=== PATIENT | female | born 1985 | race Two or more races ===

== ENCOUNTER 2018-10-20 14:40 | Inpatient (IN) | payer MEDICAID ==
[2018-10-20] MEDS ORDERED: NACL 0.9% 3 ML SYG IV (15:30)
[2018-10-20 17:04] LABS: ADD MAN DIFF? NO
[2018-10-20 17:05] LABS: BASOPHIL # 0.1 10^3/ul (0.0-0.1); BASOPHILS % 0.5 % (0.0-2.0); EOSINOPHILS # 0.3 10^3/ul (0.0-0.5); EOSINOPHILS % 1.8 % (0.0-7.0); HEMATOCRIT 36.8 % (37.0-47.0); LYMPHOCYTES # 2.9 10^3/ul (0.8-2.9); LYMPHOCYTES % 18.8 % (15.0-51.0); MEAN CORPUSCULAR HEMOGLOBIN 29.3 pg (29.0-33.0); MEAN CORPUSCULAR HGB CONC 35.3 g/dl (32.0-37.0); MEAN CORPUSCULAR VOLUME 83.1 fl (82.0-101.0); MEAN PLATELET VOLUME 10.5 fl (7.4-10.4); MONOCYTES % 6.2 % (0.0-11.0); NEUTROPHIL # 10.8 10^3/ul (1.6-7.5); NEUTROPHILS % 70.5 % (39.0-77.0); PLATELET COUNT 311 10^3/UL (140-415); RED BLOOD COUNT 4.43 10^6/ul (4.20-5.40); RED CELL DISTRIBUTION WIDTH 13.6 % (11.5-14.5)
[2018-10-20 17:05] LABS: WHITE BLOOD COUNT 15.3 10^3/ul (4.8-10.8)
[2018-10-20 17:24] LABS: HEMOGLOBIN A1C 7.9 % (0-5.9)
[2018-10-20 17:38] LABS: ADD UMIC NO; UR ASCORBIC ACID 40 mg/dL (NEGATIVE); UR BILIRUBIN (Dip) NEGATIVE (NEGATIVE); UR BLOOD (Dip) NEGATIVE (NEGATIVE); UR CLARITY SLIGHTLY CLOUDY (CLEAR); UR COLOR YELLOW (YELLOW); UR GLUCOSE (Dip) 3+ mg/dL (NEGATIVE); UR KETONES (Dip) 2+ mg/dL (NEGATIVE); UR LEUKOCYTE ESTERASE (Dip) NEGATIVE Leu/ul (NEGATIVE); UR MUCUS FEW /HPF (NONE SEEN); UR NITRITE (Dip) NEGATIVE (NEGATIVE); UR RBC 2 /HPF (0-5); UR SPECIFIC GRAVITY (Dip) 1.039 (1.003-1.030); UR SQUAMOUS EPITHELIAL CELL FEW /HPF (FEW); UR TOTAL PROTEIN (Dip) NEGATIVE (NEGATIVE); UR UROBILINOGEN (Dip) NEGATIVE (NEGATIVE); UR WBC 2 /HPF (0-5)
[2018-10-20 17:44] LABS: ALANINE AMINOTRANSFERASE 21 IU/L (13-69); ALBUMIN 4.2 g/dl (3.3-4.9); ALBUMIN/GLOBULIN RATIO 1.16; ALKALINE PHOSPHATASE 60 IU/L (42-121); ANION GAP 11 (5-13); ASPARTATE AMINO TRANSFERASE 16 IU/L (15-46); BILIRUBIN,INDIRECT 0.2 mg/dl (0-1.1); BILIRUBIN,TOTAL 0.2 mg/dl (0.2-1.3); BLOOD UREA NITROGEN 11 mg/dl (7-20); CALCIUM 10.8 mg/dl (8.4-10.2); CARBON DIOXIDE 21 mmol/L (21-31); CHLORIDE 104 mmol/L (97-110); CREATININE 0.54 mg/dl (0.44-1.00); Estimated GFR > 60 mL/min (>60); GLUCOSE 244 mg/dl (70-220); POTASSIUM 4.7 mmol/L (3.5-5.1); SODIUM 136 mmol/L (135-144); TOTAL PROTEIN 7.8 g/dl (6.1-8.1)
[2018-10-20] MEDS ORDERED: GLUCOSE GEL 15 GRAM TUBE PO ×2 (18:00)
[2018-10-20] MEDS ORDERED: GLUCOSE GEL 15 GRAM TUBE BUCCAL (18:00)
[2018-10-20] MEDS ORDERED: GLUCAGON 1 MG INJ IM (18:00)
[2018-10-20] MEDS ORDERED: DEXTROSE 50% 50 ML SYRINGE IV ×2 (18:00)
[2018-10-20] MEDS ORDERED: ACCU-CHEK XX ×2 (20:05)
[2018-10-20] MEDS: FLUCONAZOLE 150 MG TAB GTB (20:21)
[2018-10-20] MEDS: ACCU-CHEK XX (20:28)
[2018-10-20] MEDS: INSULIN ASPART [NOVOLOG] 3 ML PEN SC (20:39)
[2018-10-20] MEDS: LABETALOL 200 MG TAB PO (20:51)
[2018-10-20] MEDS ORDERED: CLOTRIMAZOLE 1% 45 GM VAG CR VAG (21:00)
[2018-10-20] MEDS: CLOTRIMAZOLE 1% 45 GM VAG CR VAG (21:00)
[2018-10-21] MEDS: ACCU-CHEK XX ×6 (08:15→16:55)
[2018-10-21] MEDS: ASPIRIN (EC) 81 MG TAB PO (09:58)
[2018-10-21] MEDS: LABETALOL 200 MG TAB PO ×2 (09:59→21:20)
[2018-10-21] MEDS: PRENATAL VITAMIN PO (10:00)
[2018-10-21] MEDS: FERROUS SULFATE (EC) 325 MG TAB PO (10:00)
[2018-10-21] MEDS: INSULIN ASPART [NOVOLOG] 3 ML PEN SC ×5 (10:09→20:34)
[2018-10-21] MEDS: NPH, HUMAN INSULIN ISOPHANE 3ML VIAL SC ×2 (10:33→21:30)
[2018-10-21 16:52] LABS: COLLECTION PERIOD 24 hrs
[2018-10-21 17:11] LABS: COLLECTION PERIOD 24 hrs; SCRET 0.54 mg/dl (0.44-1.00); VOLUME 2750 ml/24hrs
[2018-10-21 17:12] LABS: VOLUME 2750 mls
[2018-10-21 18:06] LABS: 24HR URINE TOTAL PROTEIN 302.5 mg/24hrs (42.0-225.0); CREATININE CLEARANCE 190.4 mls/min (84.0-162.0); CREATININE,URINE RANDOM 53.84 mg/dl (20-320)
[2018-10-21] MEDS: CLOTRIMAZOLE 1% 45 GM VAG CR VAG (21:21)
[2018-10-22] MEDS: ACCU-CHEK XX ×3 (08:24→14:49)
[2018-10-22] MEDS: FLUCONAZOLE 150 MG TAB GTB (08:36)
[2018-10-22] MEDS: PRENATAL VITAMIN PO (08:36)
[2018-10-22] MEDS: ASPIRIN (EC) 81 MG TAB PO (08:36)
[2018-10-22] MEDS: LABETALOL 200 MG TAB PO ×2 (08:37→21:46)
[2018-10-22] MEDS: FERROUS SULFATE (EC) 325 MG TAB PO (08:37)
[2018-10-22] MEDS: INSULIN ASPART [NOVOLOG] 3 ML PEN SC ×5 (08:43→21:01)
[2018-10-22] MEDS: NPH, HUMAN INSULIN ISOPHANE 3ML VIAL SC ×2 (08:43→21:50)
[2018-10-22] MEDS: DOCUSATE SODIUM 100 MG CAP PO (08:47)
[2018-10-22] MEDS: CLOTRIMAZOLE 1% 45 GM VAG CR VAG (21:46)
[2018-10-23] MEDS: ACCU-CHEK XX ×4 (07:30→14:44)
[2018-10-23] MEDS: NPH, HUMAN INSULIN ISOPHANE 3ML VIAL SC ×2 (08:29→21:22)
[2018-10-23] MEDS: ASPIRIN (EC) 81 MG TAB PO (08:30)
[2018-10-23] MEDS: FERROUS SULFATE (EC) 325 MG TAB PO (08:30)
[2018-10-23] MEDS: PRENATAL VITAMIN PO (08:30)
[2018-10-23] MEDS: INSULIN ASPART [NOVOLOG] 3 ML PEN SC ×4 (08:30→18:02)
[2018-10-23] MEDS: LABETALOL 200 MG TAB PO ×2 (08:32→21:16)
[2018-10-23] MEDS: CLOTRIMAZOLE 1% 45 GM VAG CR VAG (21:17)
[2018-10-24] MEDS: INSULIN ASPART [NOVOLOG] 3 ML PEN SC ×6 (07:30→20:39)
[2018-10-24] MEDS: ACCU-CHEK XX ×4 (07:47→20:32)
[2018-10-24] MEDS: PRENATAL VITAMIN PO (08:17)
[2018-10-24] MEDS: LABETALOL 200 MG TAB PO ×2 (08:18→20:56)
[2018-10-24] MEDS: ASPIRIN (EC) 81 MG TAB PO (08:18)
[2018-10-24] MEDS: FERROUS SULFATE (EC) 325 MG TAB PO (08:18)
[2018-10-24] MEDS: NPH, HUMAN INSULIN ISOPHANE 3ML VIAL SC ×2 (08:21→21:01)
[2018-10-24] MEDS: CLOTRIMAZOLE 1% 45 GM VAG CR VAG (20:56)
[2018-10-25] MEDS: ACCU-CHEK XX ×4 (07:30→20:44)
[2018-10-25] MEDS: NPH, HUMAN INSULIN ISOPHANE 3ML VIAL SC ×2 (07:35→21:10)
[2018-10-25] MEDS: INSULIN ASPART [NOVOLOG] 3 ML PEN SC ×5 (08:42→20:44)
[2018-10-25] MEDS: ASPIRIN (EC) 81 MG TAB PO (09:03)
[2018-10-25] MEDS: LABETALOL 200 MG TAB PO ×2 (09:03→21:07)
[2018-10-25] MEDS: FERROUS SULFATE (EC) 325 MG TAB PO (09:03)
[2018-10-25] MEDS: PRENATAL VITAMIN PO (09:04)
[2018-10-25] MEDS: CLOTRIMAZOLE 1% 45 GM VAG CR VAG (21:07)
[2018-10-26] MEDS: ACCU-CHEK XX ×2 (08:05→11:30)
[2018-10-26] MEDS: ASPIRIN (EC) 81 MG TAB PO (09:05)
[2018-10-26] MEDS: FERROUS SULFATE (EC) 325 MG TAB PO (09:05)
[2018-10-26] MEDS: LABETALOL 200 MG TAB PO (09:06)
[2018-10-26] MEDS: PRENATAL VITAMIN PO (09:06)
[2018-10-26] MEDS: NPH, HUMAN INSULIN ISOPHANE 3ML VIAL SC (09:11)
[2018-10-26] MEDS: INSULIN ASPART [NOVOLOG] 3 ML PEN SC ×2 (09:12→11:40)
== END 2018-10-26 14:31 | disposition home or self-care (01) | DRG 832 ==
LOC: PP1 14:40
PROVIDERS: Obstetrics & Gynecology
DX: O24.112 Pre-existing type 2 diabetes mellitus, in pregnancy, second trimester (principal); O10.912 Unspecified pre-existing hypertension complicating pregnancy, second trimester; E11.9 Type 2 diabetes mellitus without complications; Z3A.18 18 weeks gestation of pregnancy
CPT/HCPCS: 76805; 80053; 81001; 81003; 82575; 82962; 83036; 84156; 85025; 87086

== ENCOUNTER 2019-01-03 14:05 | Outpatient (CLI) | payer MEDICAID | END 2019-01-03 15:40 | disposition home or self-care (01) | LOC: OBT 14:05 → L-D 14:05 → OBT 15:40 | DX: O36.8130 Decreased fetal movements, third trimester, not applicable or unspecified (principal); O24.414 Gestational diabetes mellitus in pregnancy, insulin controlled; O16.3 Unspecified maternal hypertension, third trimester; O09.513 Supervision of elderly primigravida, third trimester; Z3A.29 29 weeks gestation of pregnancy | CPT/HCPCS: 76817; 76818 ==

== ENCOUNTER 2019-02-08 15:22 | Outpatient (CLI) | payer OTHER, MEDICAID ==
[2019-02-08] MEDS: TERBUTALINE 1 MG/ML INJ SC (17:04)
[2019-02-08] MEDS: LACTATED RINGER'S 1,000 ML IV (17:04)
== END 2019-02-08 18:30 | disposition home or self-care (01) ==
LOC: OBT 15:22 → L-D 15:23 → OBT 18:30
DX: O36.8330 Maternal care for abnormalities of the fetal heart rate or rhythm, third trimester, not applicable or unspecified (principal); Z3A.34 34 weeks gestation of pregnancy
CPT/HCPCS: 36415; 96360; 96372

== ENCOUNTER 2019-02-21 16:58 | Outpatient (CLI) | payer OTHER | END 2019-02-21 20:30 | disposition home or self-care (01) | LOC: OBT 16:58 → L-D 16:59 → OBT 20:30 | DX: O24.414 Gestational diabetes mellitus in pregnancy, insulin controlled (principal); O16.3 Unspecified maternal hypertension, third trimester; O09.513 Supervision of elderly primigravida, third trimester; Z3A.36 36 weeks gestation of pregnancy | CPT/HCPCS: Z7500 ==

== ENCOUNTER 2019-02-23 16:23 | Outpatient (CLI) | payer OTHER | END 2019-02-23 21:15 | disposition home or self-care (01) | LOC: OBT 16:23 → L-D 16:24 → OBT 21:15 | DX: O36.8130 Decreased fetal movements, third trimester, not applicable or unspecified (principal); Z3A.36 36 weeks gestation of pregnancy | CPT/HCPCS: 76818 ==

== ENCOUNTER 2019-02-25 08:09 | Observation (INO) | payer OTHER ==
[2019-02-25] MEDS ORDERED: LACTATED RINGER'S 1,000 ML IV (08:36)
[2019-02-25] MEDS ORDERED: AMPICILLIN 2 GM/NS (PMX) 100 ML IV (09:00)
[2019-02-25] MEDS ORDERED: OXYTOCIN 30 UNITS/LR 500 ML IV ×3 (09:00)
[2019-02-25] MEDS ORDERED: IBUPROFEN 600 MG TAB PO (09:00)
[2019-02-25] MEDS ORDERED: LIDOCAINE 1% (MPF) 30 ML INJ INJ (09:00)
[2019-02-25] MEDS ORDERED: CARBOPROST 250 MCG INJ IM (09:00)
[2019-02-25] MEDS ORDERED: METHYLERGONOVINE 0.2 MG INJ IM (09:00)
[2019-02-25] MEDS ORDERED: BUTORPHANOL 2 MG INJ IV ×2 (09:00)
[2019-02-25] MEDS ORDERED: MISOPROSTOL 200 MCG TAB PR (09:00)
[2019-02-25] MEDS: LACTATED RINGER'S 1,000 ML IV (09:41)
[2019-02-25 10:10] LABS: ADD MAN DIFF? NO
[2019-02-25 10:15] LABS: BASOPHIL # 0.1 10^3/ul (0.0-0.1); BASOPHILS % 0.4 % (0.0-2.0); EOSINOPHILS # 0.3 10^3/ul (0.0-0.5); EOSINOPHILS % 1.9 % (0.0-7.0); HEMATOCRIT 34.7 % (37.0-47.0); HEMOGLOBIN 11.5 g/dl (12.0-16.0); LYMPHOCYTES # 2.3 10^3/ul (0.8-2.9); LYMPHOCYTES % 17.4 % (15.0-51.0); MEAN CORPUSCULAR HEMOGLOBIN 27.8 pg (29.0-33.0); MEAN CORPUSCULAR HGB CONC 33.1 g/dl (32.0-37.0); MEAN PLATELET VOLUME 10.6 fl (7.4-10.4); MONOCYTES % 7.7 % (0.0-11.0); NEUTROPHIL # 9.6 10^3/ul (1.6-7.5); NEUTROPHILS % 71.2 % (39.0-77.0); PLATELET COUNT 342 10^3/UL (140-415); RED BLOOD COUNT 4.13 10^6/ul (4.20-5.40); RED CELL DISTRIBUTION WIDTH 13.7 % (11.5-14.5)
[2019-02-25 10:15] LABS: WHITE BLOOD COUNT 13.4 10^3/ul (4.8-10.8)
[2019-02-25 10:46] LABS: INR 0.99; PROTIME 13.2 Sec (11.9-14.9)
[2019-02-25 10:55] LABS: ALANINE AMINOTRANSFERASE 13 IU/L (13-69); ALBUMIN 3.7 g/dl (3.3-4.9); ALBUMIN/GLOBULIN RATIO 1.08; ALKALINE PHOSPHATASE 94 IU/L (42-121); ANION GAP 8 (5-13); ASPARTATE AMINO TRANSFERASE 20 IU/L (15-46); BILIRUBIN,INDIRECT 0.2 mg/dl (0-1.1); BILIRUBIN,TOTAL 0.2 mg/dl (0.2-1.3); BLOOD UREA NITROGEN 10 mg/dl (7-20); CALCIUM 9.9 mg/dl (8.4-10.2); CARBON DIOXIDE 21 mmol/L (21-31); CHLORIDE 105 mmol/L (97-110); CREATININE 0.53 mg/dl (0.44-1.00); Estimated GFR > 60 mL/min (>60); GLUCOSE 118 mg/dl (70-220); SODIUM 134 mmol/L (135-144); TOTAL PROTEIN 7.1 g/dl (6.1-8.1); URIC ACID 5.5 mg/dl (3.1-7.9)
[2019-02-25 12:20] LABS: HEPATITIS B SURFACE ANTIGEN NEGATIVE (NEGATIVE)
[2019-02-25] MEDS ORDERED: AMPICILLIN 1 GM/NS (PMX) 50 ML IV (13:00)
[2019-02-25 16:49] LABS: RAPID PLASMA REAGIN NONREACTIVE (NR)
== END 2019-02-25 12:55 | disposition home or self-care (01) ==
LOC: L-D 08:09
DX: O13.3 Gestational [pregnancy-induced] hypertension without significant proteinuria, third trimester (principal); O24.414 Gestational diabetes mellitus in pregnancy, insulin controlled; Z3A.36 36 weeks gestation of pregnancy
CPT/HCPCS: 76815; 76818; 80053; 84560; 85025; 85384; 85610; 85730; 86592; 86850; 86900; 86901; 87340; 99217

== ENCOUNTER 2019-02-28 07:50 | Inpatient (IN) | payer OTHER ==
[2019-02-28] MEDS ORDERED: CARBOPROST 250 MCG INJ IM (08:30)
[2019-02-28] MEDS ORDERED: MISOPROSTOL 200 MCG TAB PR (08:30)
[2019-02-28] MEDS ORDERED: OXYTOCIN 30 UNITS/LR 500 ML IV ×2 (08:30)
[2019-02-28] MEDS ORDERED: METHYLERGONOVINE 0.2 MG INJ IM (08:30)
[2019-02-28] MEDS ORDERED: LIDOCAINE 1% (MPF) 30 ML INJ INJ (08:30)
[2019-02-28] MEDS ORDERED: BUTORPHANOL 2 MG INJ IV (08:30)
[2019-02-28] MEDS ORDERED: OXYCODONE/ASPIRIN (4.88/325) TAB PO (08:30)
[2019-02-28] MEDS ORDERED: IBUPROFEN 600 MG TAB PO (08:30)
[2019-02-28] MEDS: LACTATED RINGER'S 1,000 ML IV ×2 (09:02→18:07)
[2019-02-28] MEDS: MISOPROSTOL 50 MCG CAPSULE PO ×3 (09:42→17:59)
[2019-02-28] MEDS: AMPICILLIN 2 GM/NS (PMX) 100 ML IV (09:42)
[2019-02-28] MEDS ORDERED: LABETALOL 200 MG TAB PO (10:00)
[2019-02-28 10:15] LABS: ADD MAN DIFF? NO
[2019-02-28 10:21] LABS: BASOPHIL # 0.1 10^3/ul (0.0-0.1); BASOPHILS % 0.5 % (0.0-2.0); EOSINOPHILS # 0.3 10^3/ul (0.0-0.5); EOSINOPHILS % 1.8 % (0.0-7.0); HEMATOCRIT 35.7 % (37.0-47.0); HEMOGLOBIN 11.8 g/dl (12.0-16.0); LYMPHOCYTES # 2.2 10^3/ul (0.8-2.9); LYMPHOCYTES % 15.6 % (15.0-51.0); MEAN CORPUSCULAR HGB CONC 33.1 g/dl (32.0-37.0); MEAN CORPUSCULAR VOLUME 84.6 fl (82.0-101.0); MEAN PLATELET VOLUME 10.8 fl (7.4-10.4); MONOCYTE # 0.8 10^3/ul (0.3-0.9); MONOCYTES % 5.8 % (0.0-11.0); NEUTROPHIL # 10.7 10^3/ul (1.6-7.5); NEUTROPHILS % 74.8 % (39.0-77.0); PLATELET COUNT 331 10^3/UL (140-415); RED BLOOD COUNT 4.22 10^6/ul (4.20-5.40); RED CELL DISTRIBUTION WIDTH 13.6 % (11.5-14.5)
[2019-02-28 10:21] LABS: WHITE BLOOD COUNT 14.3 10^3/ul (4.8-10.8)
[2019-02-28 10:42] LABS: GLUCOSE 146 mg/dl (70-220)
[2019-02-28 10:56] LABS: ALANINE AMINOTRANSFERASE 16 IU/L (13-69); ALBUMIN 3.5 g/dl (3.3-4.9); ALKALINE PHOSPHATASE 93 IU/L (42-121); ANION GAP 9 (5-13); ASPARTATE AMINO TRANSFERASE 17 IU/L (15-46); BILIRUBIN,INDIRECT 0.2 mg/dl (0-1.1); BILIRUBIN,TOTAL 0.2 mg/dl (0.2-1.3); BLOOD UREA NITROGEN 10 mg/dl (7-20); CALCIUM 9.8 mg/dl (8.4-10.2); CARBON DIOXIDE 21 mmol/L (21-31); CHLORIDE 105 mmol/L (97-110); CREATININE 0.49 mg/dl (0.44-1.00); Estimated GFR > 60 mL/min (>60); GLUCOSE 141 mg/dl (70-220); POTASSIUM 4.2 mmol/L (3.5-5.1); SODIUM 135 mmol/L (135-144); TOTAL PROTEIN 6.4 g/dl (6.1-8.1); URIC ACID 5.3 mg/dl (3.1-7.9)
[2019-02-28 11:31] LABS: INR 0.95; PROTIME 12.8 Sec (11.9-14.9)
[2019-02-28] MEDS: AMPICILLIN 1 GM/NS (PMX) 50 ML IV ×3 (13:57→21:53)
[2019-02-28] MEDS ORDERED: GLUCOSE GEL 15 GRAM TUBE PO ×2 (14:00)
[2019-02-28] MEDS ORDERED: GLUCOSE GEL 15 GRAM TUBE BUCCAL (14:00)
[2019-02-28] MEDS ORDERED: GLUCAGON 1 MG INJ IM (14:00)
[2019-02-28] MEDS ORDERED: DEXTROSE 50% 50 ML SYRINGE IV ×2 (14:00)
[2019-02-28] MEDS: INSULIN LISPRO 100 UNIT/ML VIAL SC (17:21)
[2019-02-28] MEDS: LABETALOL 200 MG TAB PO (17:59)
[2019-02-28] MEDS: NPH, HUMAN INSULIN ISOPHANE 3ML VIAL SC (21:55)
[2019-03-01] MEDS: AMPICILLIN 1 GM/NS (PMX) 50 ML IV ×6 (01:54→22:14)
[2019-03-01] MEDS: LACTATED RINGER'S 1,000 ML IV ×3 (01:55→22:52)
[2019-03-01] MEDS: LABETALOL 200 MG TAB PO ×2 (06:02→18:06)
[2019-03-01] MEDS: MISOPROSTOL 50 MCG CAPSULE PO ×3 (08:02→16:01)
[2019-03-01] MEDS: INSULIN LISPRO 100 UNIT/ML VIAL SC ×2 (08:23→18:25)
[2019-03-01] MEDS: NPH, HUMAN INSULIN ISOPHANE 3ML VIAL SC ×2 (08:29→21:10)
[2019-03-01] MEDS: OXYTOCIN 30 UNITS/LR 500 ML IV (21:16)
[2019-03-01] MEDS ORDERED: FENTAnyl 2MCG/ML-ROPIV 0.2% 100 ML (23:29)
[2019-03-01] MEDS ORDERED: ONDANSETRON 4 MG INJ IV (23:30)
[2019-03-01] MEDS ORDERED: DIPHENHYDRAMINE 50 MG INJ IV (23:30)
[2019-03-01] MEDS ORDERED: NALOXONE (0.4 MG/ML) INJ IV (23:30)
[2019-03-02] MEDS: AMPICILLIN 1 GM/NS (PMX) 50 ML IV ×6 (02:10→21:59)
[2019-03-02] MEDS: LACTATED RINGER'S 1,000 ML IV ×2 (06:07→15:42)
[2019-03-02] MEDS: LABETALOL 200 MG TAB PO ×2 (06:08→18:03)
[2019-03-02] MEDS: FENTAnyl 2MCG/ML-ROPIV 0.2% 100 ML BAG EPI ×3 (06:50→21:23)
[2019-03-02] MEDS ORDERED: INSULIN LISPRO 100 UNIT/ML VIAL SC (07:05)
[2019-03-02] MEDS ORDERED: NPH, HUMAN INSULIN ISOPHANE 3ML VIAL SC (07:05)
[2019-03-03] MEDS ORDERED: CARBOPROST 250 MCG INJ IM ×2 (01:00→07:00)
[2019-03-03] MEDS ORDERED: OXYTOCIN 30 UNITS/LR 500 ML IV (01:00)
[2019-03-03] MEDS ORDERED: MISOPROSTOL 200 MCG TAB PR ×2 (01:00→07:00)
[2019-03-03] MEDS ORDERED: METHYLERGONOVINE 0.2 MG INJ IM ×2 (01:00→07:00)
[2019-03-03] MEDS: CEFAZOLIN 3 GM in DEXTROSE 5% 100 ML IV (01:00)
[2019-03-03] MEDS: AZITHROMYCIN 500MG/NS (PMX) 250 ML IVPB (01:00)
[2019-03-03] MEDS ORDERED: CHLOROPROCAINE 3% (MPF) 20 ML INJ (02:03)
[2019-03-03] MEDS ORDERED: OXYTOCIN 30 UNITS/LR 500 ML BAG IV (02:03)
[2019-03-03] MEDS ORDERED: PHENYLephrine (100 MCG/ML) 5ML SYG (02:03)
[2019-03-03] MEDS ORDERED: ONDANSETRON 4 MG INJ (02:03)
[2019-03-03] MEDS ORDERED: METOCLOPRAMIDE 10 MG INJ (02:04)
[2019-03-03] MEDS ORDERED: ALBUTEROL 0.083% (NEB) 2.5 MG/3 ML AMP HHN (02:30)
[2019-03-03] MEDS ORDERED: FENTAnyl 50 MCG/ML VIAL IV ×3 (02:30)
[2019-03-03] MEDS ORDERED: HYDROmorphONE 1 MG/5 ML IV SYRINGE IV (02:30)
[2019-03-03] MEDS ORDERED: KETOROLAC 30 MG INJ IV (02:30)
[2019-03-03] MEDS ORDERED: DIPHENHYDRAMINE 50 MG INJ IV ×2 (02:30→06:30)
[2019-03-03] MEDS ORDERED: METOCLOPRAMIDE 10 MG INJ IV (02:30)
[2019-03-03] MEDS ORDERED: ONDANSETRON 4 MG INJ IV ×2 (02:30→06:30)
[2019-03-03] MEDS: ACETAMINOPHEN 500 MG TAB PO (02:58)
[2019-03-03] MEDS: OXYTOCIN 30 UNITS/LR 500 ML IV ×2 (03:14→09:22)
[2019-03-03] MEDS: KETOROLAC 30 MG INJ IV ×3 (03:18→21:53)
[2019-03-03] MEDS: HYDROmorphONE 1 MG/5 ML IV SYRINGE IV ×2 (03:35→05:12)
[2019-03-03] MEDS: LABETALOL 200 MG TAB PO ×3 (03:56→21:30)
[2019-03-03 05:50] LABS: ADD MAN DIFF? NO
[2019-03-03 06:02] LABS: BASOPHIL # 0.1 10^3/ul (0.0-0.1); BASOPHILS % 0.3 % (0.0-2.0); EOSINOPHILS # 0.1 10^3/ul (0.0-0.5); EOSINOPHILS % 0.4 % (0.0-7.0); HEMATOCRIT 35.2 % (37.0-47.0); HEMOGLOBIN 12.1 g/dl (12.0-16.0); LYMPHOCYTES # 1.4 10^3/ul (0.8-2.9); MEAN CORPUSCULAR HEMOGLOBIN 28.7 pg (29.0-33.0); MEAN CORPUSCULAR HGB CONC 34.4 g/dl (32.0-37.0); MEAN CORPUSCULAR VOLUME 83.4 fl (82.0-101.0); MEAN PLATELET VOLUME 10.5 fl (7.4-10.4); MONOCYTES % 5.2 % (0.0-11.0); NEUTROPHIL # 17.3 10^3/ul (1.6-7.5); NEUTROPHILS % 86.4 % (39.0-77.0); PLATELET COUNT 276 10^3/UL (140-415); RED BLOOD COUNT 4.22 10^6/ul (4.20-5.40); RED CELL DISTRIBUTION WIDTH 13.5 % (11.5-14.5)
[2019-03-03 06:16] LABS: INR 1.02; PROTIME 13.5 Sec (11.9-14.9); PT RATIO 1.1
[2019-03-03 06:17] LABS: PARTIAL THROMBOPLASTIN TIME 33.3 Sec (23.0-35.0)
[2019-03-03] MEDS ORDERED: HYDROmorphONE 0.5 MG/0.5 ML SYG IV (06:30)
[2019-03-03] MEDS ORDERED: NALOXONE (0.4 MG/ML) INJ IV (06:30)
[2019-03-03] MEDS ORDERED: NA PHOSPHATE/BIPHOS 133 ML ENEMA PR (07:00)
[2019-03-03] MEDS ORDERED: LANOLIN HPA 1 PKT TOP (07:00)
[2019-03-03] MEDS: SENNA/DOCUSATE NA (8.6MG/50MG) TAB PO ×2 (09:18→21:47)
[2019-03-03] MEDS: CEFAZOLIN 2 GM/50 ML (PMX) 50 ML IVPB (10:16)
[2019-03-03] MEDS: HYDROmorphONE 0.5 MG/0.5 ML SYG IV ×2 (10:16→20:07)
[2019-03-03] MEDS: CLINDAMYCIN 300 MG CAP PO (12:21)
[2019-03-03] MEDS ORDERED: ENOXAPARIN 40 MG/0.4 ML SYG SC (15:00)
[2019-03-03 16:15] LABS: RAPID PLASMA REAGIN NONREACTIVE (NR)
[2019-03-03] MEDS: LACTATED RINGER'S 1,000 ML IV (16:16)
[2019-03-03] MEDS: ENOXAPARIN 40 MG/0.4 ML SYG SC (16:28)
[2019-03-03 17:31] LABS: ADD MAN DIFF? NO
[2019-03-03 17:40] LABS: WHITE BLOOD COUNT 16.4 10^3/ul (4.8-10.8)
[2019-03-03 17:40] LABS: BASOPHIL # 0.1 10^3/ul (0.0-0.1); BASOPHILS % 0.3 % (0.0-2.0); EOSINOPHILS # 0.1 10^3/ul (0.0-0.5); EOSINOPHILS % 0.4 % (0.0-7.0); HEMATOCRIT 31.9 % (37.0-47.0); HEMOGLOBIN 10.7 g/dl (12.0-16.0); LYMPHOCYTES # 1.5 10^3/ul (0.8-2.9); LYMPHOCYTES % 9.3 % (15.0-51.0); MEAN CORPUSCULAR HEMOGLOBIN 28.2 pg (29.0-33.0); MEAN CORPUSCULAR HGB CONC 33.5 g/dl (32.0-37.0); MEAN CORPUSCULAR VOLUME 84.2 fl (82.0-101.0); MEAN PLATELET VOLUME 10.2 fl (7.4-10.4); MONOCYTES % 6.3 % (0.0-11.0); NEUTROPHIL # 13.6 10^3/ul (1.6-7.5); NEUTROPHILS % 83.2 % (39.0-77.0); PLATELET COUNT 259 10^3/UL (140-415); RED BLOOD COUNT 3.79 10^6/ul (4.20-5.40); RED CELL DISTRIBUTION WIDTH 13.5 % (11.5-14.5)
[2019-03-03] MEDS: GENTAMICIN 80 MG/NS (PMX) 50 ML IVPB (20:30)
[2019-03-03] MEDS: NPH, HUMAN INSULIN ISOPHANE 3ML VIAL SC (21:38)
[2019-03-03] MEDS: CLINDAMYCIN 900 MG (PMX) 50 ML IVPB (21:56)
[2019-03-03] MEDS: INSULIN REGULAR, HUMAN 100 UNIT/1 ML 3ML VIAL SC (22:12)
[2019-03-03] MEDS: AMPICILLIN 2 GM/NS (PMX) 100 ML IVPB (22:51)
[2019-03-04] MEDS: GENTAMICIN 80 MG/NS (PMX) 50 ML IVPB ×3 (01:33→17:16)
[2019-03-04] MEDS: LACTATED RINGER'S 1,000 ML IV ×3 (01:35→22:46)
[2019-03-04] MEDS: OXYCODONE/ACETAMINOPHEN (5/325) TAB PO (03:52)
[2019-03-04] MEDS: AMPICILLIN 2 GM/NS (PMX) 100 ML IVPB ×4 (05:33→19:18)
[2019-03-04] MEDS: IBUPROFEN 800 MG TAB PO ×3 (05:33→22:05)
[2019-03-04] MEDS: CLINDAMYCIN 900 MG (PMX) 50 ML IVPB ×5 (06:41→23:51)
[2019-03-04] MEDS: ACCU-CHEK XX ×4 (07:30→20:05)
[2019-03-04] MEDS: INSULIN REGULAR, HUMAN 100 UNIT/1 ML 3ML VIAL SC ×2 (09:03→21:00)
[2019-03-04] MEDS: NPH, HUMAN INSULIN ISOPHANE 3ML VIAL SC ×2 (09:06→22:11)
[2019-03-04] MEDS: ENOXAPARIN 40 MG/0.4 ML SYG SC (09:07)
[2019-03-04] MEDS: LABETALOL 200 MG TAB PO ×2 (09:09→22:05)
[2019-03-04] MEDS: SENNA/DOCUSATE NA (8.6MG/50MG) TAB PO ×2 (09:09→21:00)
[2019-03-04 09:27] LABS: ADD MAN DIFF? NO
[2019-03-04 09:29] LABS: WHITE BLOOD COUNT 10.7 10^3/ul (4.8-10.8)
[2019-03-04 09:29] LABS: BASOPHILS % 0.4 % (0.0-2.0); EOSINOPHILS # 0.2 10^3/ul (0.0-0.5); EOSINOPHILS % 1.8 % (0.0-7.0); HEMATOCRIT 30.7 % (37.0-47.0); LYMPHOCYTES # 1.5 10^3/ul (0.8-2.9); LYMPHOCYTES % 13.7 % (15.0-51.0); MEAN CORPUSCULAR HEMOGLOBIN 27.9 pg (29.0-33.0); MEAN CORPUSCULAR HGB CONC 32.6 g/dl (32.0-37.0); MEAN CORPUSCULAR VOLUME 85.5 fl (82.0-101.0); MEAN PLATELET VOLUME 10.1 fl (7.4-10.4); MONOCYTE # 0.8 10^3/ul (0.3-0.9); MONOCYTES % 7.5 % (0.0-11.0); NEUTROPHIL # 8.1 10^3/ul (1.6-7.5); NEUTROPHILS % 75.6 % (39.0-77.0); PLATELET COUNT 258 10^3/UL (140-415); RED BLOOD COUNT 3.59 10^6/ul (4.20-5.40); RED CELL DISTRIBUTION WIDTH 13.4 % (11.5-14.5)
[2019-03-04] MEDS: HYDROCODONE/APAP (5/325) TAB PO (15:44)
[2019-03-05] MEDS: BISACODYL 10 MG SUPP PR (01:13)
[2019-03-05] MEDS: GENTAMICIN 80 MG/NS (PMX) 50 ML IVPB ×2 (01:19→09:39)
[2019-03-05] MEDS: AMPICILLIN 2 GM/NS (PMX) 100 ML IVPB ×3 (02:12→11:48)
[2019-03-05] MEDS: HYDROCODONE/APAP (5/325) TAB PO ×2 (05:24→17:02)
[2019-03-05] MEDS: IBUPROFEN 800 MG TAB PO ×3 (06:21→21:53)
[2019-03-05] MEDS: CLINDAMYCIN 900 MG (PMX) 50 ML IVPB ×2 (06:22→11:49)
[2019-03-05] MEDS: LACTATED RINGER'S 1,000 ML IV ×3 (07:15→08:00)
[2019-03-05] MEDS: ACCU-CHEK XX ×3 (08:40→15:00)
[2019-03-05] MEDS: SENNA/DOCUSATE NA (8.6MG/50MG) TAB PO ×2 (08:53→21:53)
[2019-03-05] MEDS: LABETALOL 200 MG TAB PO ×2 (08:53→21:53)
[2019-03-05] MEDS: ENOXAPARIN 40 MG/0.4 ML SYG SC (08:58)
[2019-03-05] MEDS: INSULIN REGULAR, HUMAN 100 UNIT/1 ML 3ML VIAL SC ×2 (08:58→21:00)
[2019-03-05] MEDS: OXYCODONE/ACETAMINOPHEN (5/325) TAB PO (09:14)
[2019-03-05] MEDS: CLINDAMYCIN 300 MG CAP PO (17:01)
[2019-03-05] MEDS: NPH, HUMAN INSULIN ISOPHANE 3ML VIAL SC (21:43)
[2019-03-05] MEDS ORDERED: ACETAMINOPHEN 325 MG TAB PO (22:00)
[2019-03-06] MEDS: CLINDAMYCIN 300 MG CAP PO ×2 (00:43→05:48)
[2019-03-06] MEDS: HYDROCODONE/APAP (5/325) TAB PO ×2 (02:36→08:57)
[2019-03-06] MEDS: IBUPROFEN 800 MG TAB PO (05:48)
[2019-03-06] MEDS: ACCU-CHEK XX ×3 (07:50→10:58)
[2019-03-06 08:13] LABS: ADD MAN DIFF? NO
[2019-03-06 08:18] LABS: BASOPHIL # 0.1 10^3/ul (0.0-0.1); BASOPHILS % 0.6 % (0.0-2.0); EOSINOPHILS # 0.5 10^3/ul (0.0-0.5); EOSINOPHILS % 6.8 % (0.0-7.0); HEMATOCRIT 27.1 % (37.0-47.0); HEMOGLOBIN 8.8 g/dl (12.0-16.0); LYMPHOCYTES # 1.5 10^3/ul (0.8-2.9); LYMPHOCYTES % 19.1 % (15.0-51.0); MEAN CORPUSCULAR HEMOGLOBIN 27.8 pg (29.0-33.0); MEAN CORPUSCULAR HGB CONC 32.5 g/dl (32.0-37.0); MEAN CORPUSCULAR VOLUME 85.5 fl (82.0-101.0); MEAN PLATELET VOLUME 10.3 fl (7.4-10.4); MONOCYTE # 0.8 10^3/ul (0.3-0.9); MONOCYTES % 10.1 % (0.0-11.0); NEUTROPHILS % 62.4 % (39.0-77.0); PLATELET COUNT 321 10^3/UL (140-415); RED BLOOD COUNT 3.17 10^6/ul (4.20-5.40); RED CELL DISTRIBUTION WIDTH 13.6 % (11.5-14.5)
[2019-03-06] MEDS: ENOXAPARIN 40 MG/0.4 ML SYG SC (08:43)
[2019-03-06] MEDS: INSULIN REGULAR, HUMAN 100 UNIT/1 ML 3ML VIAL SC (08:49)
[2019-03-06] MEDS: NPH, HUMAN INSULIN ISOPHANE 3ML VIAL SC (08:51)
[2019-03-06] MEDS: LABETALOL 200 MG TAB PO (08:56)
[2019-03-06] MEDS: SENNA/DOCUSATE NA (8.6MG/50MG) TAB PO (09:00)
[2019-03-06] MEDS: MEASLES,MUMPS,RUBELLA VACCINE INJ SC* (09:00)
[2019-03-06] MEDS: DIPHTH/TET/ACEL PERTUSS (ADULT) 0.5 ML VIAL IM* (10:58)
== END 2019-03-06 12:25 | disposition home or self-care (01) | DRG 788 ==
LOC: L-D 07:50 → MS1 03-03 11:44 → PP1 03-03 21:04
PROVIDERS: Obstetrics & Gynecology
PROC: 10D00Z1 Extraction of Products of Conception, Low, Open Approach (ICD-10-PCS; principal; 2019-03-03 01:00)
PROC: 3E033VJ Introduction of Other Hormone into Peripheral Vein, Percutaneous Approach (ICD-10-PCS; 2019-03-03 01:00)
DX: O13.4 Gestational [pregnancy-induced] hypertension without significant proteinuria, complicating childbirth (principal); O24.429 Gestational diabetes mellitus in childbirth, unspecified control; O62.1 Secondary uterine inertia; O99.214 Obesity complicating childbirth; E66.01 Morbid (severe) obesity due to excess calories; Z3A.37 37 weeks gestation of pregnancy; Z37.0 Single live birth
CPT/HCPCS: 62322; 80053; 82947; 82962; 84560; 85025; 85610; 85730; 86592; 86850; 86900; 86901; 90715; 99464; J2400